=== PATIENT | male | born 1945 | race Caucasian/White ===

== ENCOUNTER 2018-01-09 08:55 | Inpatient (IN) | END 2018-01-20 19:45 | disposition home or self-care (01) | DRG 66 ==

== ENCOUNTER 2018-08-30 20:07 | Emergency (ER) | payer SELFPAY ==
[~2018-08-30] VITALS: Ht 170.2 cm; Wt 80.0 kg
[~2018-08-30 20:07] MED LIST: AMLO-145 PO; ASPI325T32 PO; LINA5TAB PO; LOSA50TA2 PO; MECL12.574 PO; METF500T PO; METO-335 PO
[2018-08-30 20:22] VITALS: Ht 170.2 cm; Wt 80.0 kg
[2018-08-30] MEDS ORDERED: ONDANSETRON 4 MG INJ IV STA (20:40)
[2018-08-30] MEDS ORDERED: SOD CHLORIDE 0.9% 1,000 ML IV STA (20:40)
--- NOTE | 2018-08-30 20:42 | ERD ---
ER Documentation Chief Complaint Chief Complaint DIZZINESS WHILE LAYING IN THE BED.PT DENIES FALLING HPI This is a 73-year-old man complaining of the room spinning sensation lasting for a few seconds this evening. He denies slurred speech, no gait ataxia, no weakness in his arms or legs, no recent fevers or chills, no chest pain or shortness of breath, no vomiting or diarrhea. Patient also states he has trouble sleeping tonight ROS All systems reviewed and are negative except as per history of present illness. Medications Home Meds Active Scripts Metformin Hcl (Glucophage) 500 Mg Tablet, 500 MG PO BID WITH MEALS for 60 Days, TAB Prov:SHIMA NORMAN MD 01/20/18 Linagliptin (TRADJENTA) 5 Mg Tablet, 5 MG PO DAILY, #60 TAB Prov:SHIMA NORMAN MD 01/20/18 Meclizine Hcl* (Antivert*) 12.5 Mg Tab, 12.5 MG PO TID for 30 Days, TAB Prov:SHIMA NORMAN MD 01/20/18 Aspirin (Aspir-Abigail) 325 Mg Tablet.dr, 325 MG PO DAILY for 30 Days Prov:SHIMA NORMAN MD 01/20/18 Metoprolol Succinate* (Toprol XL*) 25 Mg Tab.sr.24h, 75 MG PO DAILY for 30 Days Prov:SHIMA NORMAN MD 01/20/18 Losartan Potassium* (Cozaar*) 50 Mg Tablet, 100 MG PO DAILY for 30 Days, TAB Prov:SHIMA NORMAN MD 01/20/18 Amlodipine Besylate* (Amlodipine Besylate*) 5 Mg Tablet, 5 MG PO BID for 28 Days, TAB Prov:SHIMA NORMAN MD 01/20/18 Allergies Allergies: Coded Allergies: No Known Allergy (Unverified , 01/12/18) pt states NKA PMhx/Soc Hypertension, history of CVAs Hx Neurological Disorder: Yes (STROKE ) Hx Cardiac Disorders: Yes (HTN) Hx Miscellaneous Medical Probl: Yes (ARTHRITIS) Hx Alcohol Use: No Hx Substance Use: No Hx Tobacco Use: No Smoking Status: Unknown if ever smoked FmHx Family History: No diabetes Physical Exam Vitals Vital Signs Date Temp Pulse Resp B/P (MAP) Pulse Ox O2 O2 Flow FiO2 Time Delivery Rate 08/30/18 98.0 84 18 167/104 98 Room Air 20:40 (125) 6/23/19 97.9 93 16 167/101 99 20:22 (123) Physical Exam GENERAL: Well-developed, well-nourished, dehydrated, appears anxious, afebrile HEENT: Dry mucous membranes, pink conjunctiva, no cervical spine tenderness or step-off deformities, no goiter, no jaundice or icterus, extraocular movements intact without pain. No submandibular induration, and no pharyngeal erythema NEURO: Alert and oriented 3, cranial nerves II through XII intact bilaterally, pupils equal round reactive to light, no focal deficits or facial asymmetry, sensation intact distally Strength 5/5 in upper and lower extremities bilaterally CARDIAC: Regular rate and rhythm, no murmurs rubs or gallops LUNGS: Clear bilaterally no wheezing crackles or stridor ABDOMEN: Soft nontender, no guarding, no rigidity, no rebound, no psoas sign no obturator sign. Normoactive bowel sounds SKIN: Warm and dry to touch, no abrasions, contusions, or hematomas, no lacerations, no ecchymosis, no target lesions, and without ulcers EXTREMITIES: No clubbing cyanosis or edema, calves are bilaterally symmetrical, no Homans sign, no popliteal cord sign. Distal pulses equal and bilateral PSYCH: Appears anxious Result Diagram: 08/30/18204308/30/182043 Results 24 hrs Laboratory Tests Test 08/30/18 20:44 08/30/18 21:40 White Blood Count 8.4 10^3/ul Red Blood Count 4.82 10^6/ul Hemoglobin 15.5 g/dl Hematocrit 44.4 % Mean Corpuscular Volume 92.1 fl Mean Corpuscular Hemoglobin 32.2 pg Mean Corpuscular Hemoglobin Concent 34.9 g/dl Red Cell Distribution Width 11.6 % Platelet Count 298 10^3/UL Mean Platelet Volume 9.1 fl Immature Granulocytes % 0.400 % Neutrophils % 51.8 % Lymphocytes % 35.2 % Monocytes % 10.0 % Eosinophils % 1.8 % Basophils % 0.8 % Nucleated Red Blood Cells % 0.0 /100WBC Immature Granulocytes # 0.030 10^3/ul Neutrophils # 4.4 10^3/ul Lymphocytes # 3.0 10^3/ul Monocytes # 0.8 10^3/ul Eosinophils # 0.2 10^3/ul Basophils # 0.1 10^3/ul Nucleated Red Blood Cells # 0.0 10^3/ul Sodium Level 138 mmol/L Potassium Level 3.8 mmol/L Chloride Level 103 mmol/L Carbon Dioxide Level 24 mmol/L Anion Gap 11 Blood Urea Nitrogen 15 mg/dl Creatinine 0.69 mg/dl Est Glomerular Filtrat Rate mL/min mL/min Glucose Level 168 mg/dl Calcium Level 8.9 mg/dl Total Bilirubin 0.3 mg/dl Direct Bilirubin 0.00 mg/dl Indirect Bilirubin 0.3 mg/dl Aspartate Amino Transf (AST/SGOT) 17 IU/L Alanine Aminotransferase (ALT/SGPT) 22 IU/L Alkaline Phosphatase 51 IU/L Troponin I < 0.012 ng/ml Total Protein 7.5 g/dl Albumin 4.1 g/dl Globulin 3.40 g/dl Albumin/Globulin Ratio 1.20 Lipase 60 U/L Urine Color YELLOW Urine Clarity CLEAR Urine pH 6.0 Urine Specific [place] 1.014 Urine Ketones NEGATIVE mg/dL Urine Nitrite NEGATIVE mg/dL Urine Bilirubin NEGATIVE mg/dL Urine Urobilinogen NEGATIVE mg/dL Urine Leukocyte Esterase NEGATIVE Grady/ul Urine Hemoglobin NEGATIVE mg/dL Urine Glucose 1+ mg/dL Urine Total Protein NEGATIVE mg/dl Current Medications Medications Dose Sig/Yaniv Start Time Status Last (Trade) Ordered Route PRN Stop Time Admin Dose Reason Admin Enalaprilat 1.25 mg ONCE ONCE 08/30/18 DC 08/30/18 (Vasotec Iv) IV 21:00 20:52 08/30/18 21:01 Sodium 1,000 ml @ Q1H STAT 08/30/18 DC 08/30/18 Chloride 1,000 mls/hr IV 20:40 20:53 08/30/18 21:39 Ondansetron 4 mg ONCE STAT 08/30/18 DC 08/30/18 HCl (Zofran IV 20:40 20:52 Inj) 08/30/18 20:42 Procedures/MDM IV line was established patient was placed on customs consultant rhythm strip revealed a sinus rhythm at about 80 bpm with upright P and T waves. Patient was afebrile I administered 1 L normal saline IV for dehydration and Zofran 4 mg IV for dizziness. EKG performed, read by me revealed normal sinus rhythm at 84 bpm, normal axis, narrow QRS complex, no concerning ST elevations or depressions noted One AP view of the chest performed, read by me reveals no acute infiltrates, normal mediastinum, sharp costophrenic and cardiac borders, no air under the diaphragm. Otherwise unremarkable chest x-ray. I also administered enalapril 1.25 mg IV x1 for hypertension. CBC and electrolytes were normal, liver function test normal, troponin negative, urinalysis negative for infection. I spoke to the physician on-call for the patient's primary care physician and we discussed the patient's presentation, symptomatology, labs, and overall ER work- up. There is no indication at this time for any further intervention, imaging, or admission and he stated the patient can call tomorrow morning for expedited appointment to see his primary care physician on Friday or Friday Patient did appear anxious in the emergency department and I administered lorazepam 0.5 mg p.o. x1. Differential diagnoses considered, included but not limited to acute coronary syndrome, pulmonary embolism, aortic dissection, abdominal aortic aneurysm, sepsis, stroke, meningitis, encephalitis, pneumonia, appendicitis, cholecystitis, bowel obstruction, pyelonephritis, nephrolithiasis, cystitis, as well as metabolic, hematologic, and electrolyte abnormalities. As well as abscess, cellulitis, fractures, and dislocations. Patient feels much better at this time, and vital signs are normal, symptoms have improved. I did give strict instructions to return to the ED if symptoms continue or worsen, patient will otherwise follow-up with primary care physician. Patient understood instructions and agreed to plan. Disclaimer: Inadvertent spelling and grammatical errors are likely due to EHR/dictation software use and do not reflect on the overall quality of patient care. Also, please note that the electronic time recorded on this note does not necessarily reflect the actual time of the patient encounter. Departure Diagnosis: Primary Impression: Dizziness Additional Impressions: Hypertension Hypertension type: essential hypertension Qualified Codes: I10 - Essential (primary) hypertension Acute dehydration Condition: Good ROBBIN ESCOBAR MD Aug 30, 2018 20:42
[2018-08-30] MEDS ORDERED: ENALAPRILAT 1.25 MG INJ IV ONE (21:00)
[2018-08-30] MEDS ORDERED: LORAZEPAM 0.5 MG TAB PO ONE (23:30)
[2018-08-31 00:35] VITALS: BP 139/91; PULSE 66; RESP 14
== END 2018-08-31 00:43 | disposition home or self-care (01) ==
LOC: E/R 20:07
DX: I10 Essential (primary) hypertension (principal); E86.0 Dehydration; Z79.82 Long term (current) use of aspirin; Z86.73 Personal history of transient ischemic attack (TIA), and cerebral infarction without residual deficits
CPT/HCPCS: 36415; 71045; 80053; 81003; 83690; 84484; 85025; 93005; 96361; 96374; 96375; 99285; J2405; J7030